=== PATIENT | male | born 1980 | race Caucasian/White ===

== ENCOUNTER 2019-11-14 15:47 | Emergency (ER) | payer SELFPAY ==
[~2019-11-14] VITALS: Ht 177.8 cm; Wt 95.5 kg
[2019-11-14 15:54] VITALS: Ht 177.8 cm; Wt 95.5 kg
[2019-11-14 16:41] LABS: BASOPHILS 0.2 % (0-2); EOSINOPHILS 0.1 % (0-7); HEMATOCRIT 50.1 % (42.0-54.0); HEMOGLOBIN 16.5 g/dL (13.5-17.5); IMMATURE GRANULOCYTES 0.2 % (0-5); LYMPHOCYTES 6.1 % (15-50); MCH 30.7 pg (26.0-34.0); MCHC 32.9 g/dL (31.0-37.0); MCV 93.3 fL (80.0-100.0); MEAN PLATELET VOLUME 10.7 fL (7.4-10.4); MONOCYTES 4.3 % (2-11); NEUTROPHILS 89.1 % (40-80); PLATELET COUNT 240 10x3/uL (130-400); RBC 5.37 10x6/uL (4.20-6.10); RDW 13.7 % (11.5-14.5); WBC 12.4 10x3/uL (4.8-10.8)
[2019-11-14 16:53] LABS: BILIRUBIN NEGATIVE (NEGATIVE); GLUCOSE NEGATIVE (NEGATIVE); KETONE LARGE mg/dL (NEGATIVE); NITRITE NEGATIVE (NEGATIVE); UROBILINOGEN NORMAL (NORMAL)
[2019-11-14 17:00] LABS: CALC OSMOLALITY 286 mosm/kg (275-300); CARBON DIOXIDE 24.6 mmol/L (21.0-32.0); CHLORIDE - SERUM 104 mmol/L (98-107); CREATININE - SERUM 1.2 mg/dL (0.6-1.3); GLUCOSE 144 mg/dL (74-106); POTASSIUM - SERUM 3.8 mmol/L (3.5-5.1); SODIUM 141 mmol/L (136-145); UREA NITROGEN 21 mg/dL (7-18); eGFR NON AFRICAN AMERICAN 71 mL/min (90-120)
[2019-11-14 17:08] LABS: ALBUMIN 4.6 g/dL (3.4-5.0); ALKALINE PHOSPHATASE 88 U/L (30-120); ALT (SGPT) 45 U/L (10-68); AMYLASE - SERUM 53 U/L (25-115); LIPASE 72 U/L (73-393); PROTEIN - SERUM 8.5 g/dL (6.4-8.2)
[2019-11-14 17:09] LABS: TROPONIN-I < 0.017 ng/mL (0.000-0.060)
[2019-11-14] MEDS ORDERED: CARAFATE1 G PO (18:13)
[2019-11-14] MEDS ORDERED: PROTONIX40 MG PO (18:13)
[2019-11-14] MEDS ORDERED: ZOFRAN ODT4 MG/UDTAB PO (18:13)
[2019-11-14 18:42] VITALS: BP 138/77
== END 2019-11-14 19:02 | disposition home or self-care (01) ==
LOC: D.ER 15:47
PROVIDERS: Family Medicine
DX: R10.30 Lower abdominal pain, unspecified (principal); R11.2 Nausea with vomiting, unspecified